=== PATIENT | male | born 1935 | race Caucasian/White ===

== ENCOUNTER 2017-12-06 11:26 | Inpatient (IN) | payer MEDICARE, OTHER ==
[~2017-12-06] VITALS: Ht 182.9 cm; Wt 60.5 kg
[2017-12-06] MEDS ORDERED: DONE5TAB5 PO (12:13)
[2017-12-06] MEDS ORDERED: MEMA5 PO (12:13)
[2017-12-06] MEDS ORDERED: AMLO2.5T PO (12:13)
[2017-12-06] MEDS ORDERED: SERT50TA12 PO (12:13)
[2017-12-06 12:18] LABS: GLUCOSE,POINT OF CARE 117 MG/DL (70-110)
[2017-12-06] MEDS ORDERED: SODIUM CHLORIDE 0.9% 1,000 ML IV ONE ×2 (12:30→14:00)
[2017-12-06] MEDS ORDERED: 0.9% SODIUM CHLORIDE 10 ML SYRINGE IVP PRN ×2 (12:30→15:15)
[2017-12-06] MEDS ORDERED: ACETAMINOPHEN 1000 MG/ISO-OSM 100 ML IV ONE (12:45)
[2017-12-06 12:57] LABS: BASOPHILS % (AUTO) 1.3 % (0.0-2.0); EOSINOPHILS % (AUTO) 0 % (1.0-6.0); HEMATOCRIT 41.4 % (41-53); HEMOGLOBIN 13.8 g/dL (13.5-17.5); LYMPHOCYTES # (AUTO) 0.5 K/uL (1.0-4.8); LYMPHOCYTES % (AUTO) 2.1 % (22.0-44.0); MEAN CORPUSCULAR HEMOGLOBIN 28.6 pg (26.0-34.0); MEAN CORPUSCULAR HGB CONC 33.4 G/dL (31.0-37.0); MEAN CORPUSCULAR VOLUME 86 fL (80-100); MONOCYTES # (AUTO) 1.2 K/uL (0.1-1.0); MONOCYTES % (AUTO) 5.1 % (2.0-9.0); NEUTROPHILS # (AUTO) 21.6 K/uL (1.8-7.7); PLATELET COUNT (AUTO) 560 K/uL (150-450); RED BLOOD CELL COUNT(AUTO) 4.83 MIL/uL (4.50-5.90); RED CELL DISTRIBUTION WIDTH 14.8 % (11.5-14.5)
[2017-12-06 12:58] LABS: NEUTROPHILS % (AUTO) 91.5 % (40.0-70.0)
[2017-12-06] MEDS ORDERED: IPRATROPIUM BROMIDE 0.5 MG/2.5 ML NEB SOLUTION NEB ONE (13:00)
[2017-12-06] MEDS ORDERED: ALBUTEROL SULFATE 2.5 MG/0.5 ML NEB SOLUTION NEB ONE (13:00)
[2017-12-06 13:11] LABS: INR 1.1 (0.9-1.1); PROTHROMBIN TIME 11.3 SEC (9.4-11.6)
[2017-12-06] MEDS ORDERED: VANCOMYCIN HCL 1 GM/D5% WATER 200 ML IV ONE (13:15)
[2017-12-06] MEDS ORDERED: LEVOFLOXACIN 750 MG/D5% WATER 150 ML IV ONE (13:15)
[2017-12-06 13:21] LABS: ANION GAP 11 mmol/L (8-16); CALCIUM, TOTAL 9.6 mg/dL (8.8-10.5); CARBON DIOXIDE 28 mmol/L (22-29); CHLORIDE 120 mmol/L (98-107); CREATININE 1.79 mg/dL (0.60-1.30); GLOMERULAR FILTR. RATE CALC 37 mL/min (>60); GLUCOSE,RANDOM 134 mg/dL (70-110); POTASSIUM 3.2 mmol/L (3.5-5.1); SODIUM SERUM 159 mmol/L (136-145); UREA NITROGEN, BLOOD 65 mg/dL (7-18)
[2017-12-06 13:25] LABS: INFLUENZA TYPE A NEGATIVE FOR TYPE A (NEGATIVE); INFLUENZA TYPE B NEGATIVE FOR TYPE B (NEGATIVE)
[2017-12-06 13:27] LABS: BILIRUBIN,URINE NEGATIVE (NEGATIVE); GLUCOSE, URINE (UA) NEGATIVE (NEGATIVE); KETONES,URINE NEGATIVE (NEGATIVE); LEUKOCYTE ESTERASE ,URINE NEGATIVE (NEGATIVE); NITRATE,URINE NEGATIVE (NEGATIVE); OCCULT BLOOD,URINE SMALL (NEGATIVE); PH,URINE 5.5 (5.0-8.0); PROTEIN,URINE POS 1+ (NEGATIVE)
[2017-12-06 13:28] LABS: APPEARANCE,URINE HAZY (CLEAR)
[2017-12-06 13:32] LABS: B-TYPE NATRIURETIC PEPTIDE 253 pg/mL (0-100)
[2017-12-06 13:35] LABS: BACTERIA,URINE Few /HPF (None Seen); RBC,URINE 0-2 /HPF (0-2); SQUAMOUS EPITHELIAL CELL,UR Few /LPF (None Seen)
[2017-12-06 13:44] LABS: ALANINE AMINOTRANSFERASE 50 U/L (12-78); ALBUMIN 2.3 g/dL (3.4-5.0); ALKALINE PHOSPHATASE 110 U/L (46-116); ASPARTATE AMINOTRANSFERASE 34 U/L (15-37); BILIRUBIN,TOTAL 0.8 mg/dL (0.1-1.0); CREATINE KINASE, TOTAL 108 U/L (39-308); TOTAL PROTEIN, SERUM 7.7 g/dL (6.4-8.2)
[2017-12-06] MEDS ORDERED: SODIUM CHLORIDE 0.9% 500 ML IV ONE (14:00)
[2017-12-06] MEDS ORDERED: *CLINICAL-LEVOFLOXACIN IVPB DOSING CLINICAL ONE (19:45)
[2017-12-06] MEDS ORDERED: ALBUTEROL SULFATE HFA 90 MCG/PUFF 8 GM INHALER IH PRN (19:45)
[2017-12-06] MEDS ORDERED: MAGNESIUM HYDROXIDE SUSPENSION 30 ML UDCUP PO PRN (19:45)
[2017-12-06] MEDS ORDERED: HYDROCODONE/ACETAMINOPHEN 5-325 MG TABLET PO PRN (19:45)
[2017-12-06] MEDS ORDERED: ZOLPIDEM TARTRATE 5 MG TABLET PO PRN (19:45)
[2017-12-06] MEDS ORDERED: MORPHINE SULFATE 2 MG/ML SYRINGE IVP PRN (19:45)
[2017-12-06] MEDS ORDERED: ONDANSETRON HCL 4 MG/2 ML VIAL IVP PRN (19:45)
[2017-12-06] MEDS ORDERED: DEXTROSE 5%-WATER 1,000 ML IV ONE (19:45)
[2017-12-06] MEDS ORDERED: BISACODYL 10 MG RECTAL RECTAL SUPPOSITORY PR PRN (19:45)
[2017-12-06] MEDS: IPRATROPIUM BROMIDE 0.5 MG/2.5 ML NEB SOLUTION NEB SCH (20:42)
[2017-12-06] MEDS: ALBUTEROL SULFATE 2.5 MG/0.5 ML NEB SOLUTION NEB SCH (20:42)
[2017-12-06 20:53] VITALS: BP 113/57
[2017-12-06] MEDS: DOCUSATE SODIUM 100 MG CAPSULE PO SCH (21:00)
[2017-12-06] MEDS: POTASSIUM CHL 10 MEQ/WATER 50 ML IV SCH ×2 (21:29→23:54)
[2017-12-06] MEDS ORDERED: INFLUENZA VIRUS VACCINE QVS 2017-18 (3YR+)/PF 60 MCG/0.5 ML SYRINGE IM ONE (22:45)
[2017-12-06 23:31] VITALS: BP 99/63
[2017-12-06] MEDS: HEPARIN SODIUM,PORCINE 5,000 UNITS/ML VIAL SQ SCH (23:54)
[2017-12-07] MEDS: IPRATROPIUM BROMIDE 0.5 MG/2.5 ML NEB SOLUTION NEB SCH ×2 (02:34→09:31)
[2017-12-07] MEDS: ALBUTEROL SULFATE 2.5 MG/0.5 ML NEB SOLUTION NEB SCH ×2 (02:34→09:31)
[2017-12-07 03:56] VITALS: BP 127/88
[2017-12-07 06:25] LABS: BASOPHILS % (AUTO) 0.1 % (0.0-2.0); EOSINOPHILS % (AUTO) 0 % (1.0-6.0); HEMATOCRIT 34.1 % (41-53); HEMOGLOBIN 11.7 g/dL (13.5-17.5); LYMPHOCYTES # (AUTO) 0.6 K/uL (1.0-4.8); LYMPHOCYTES % (AUTO) 3.4 % (22.0-44.0); MEAN CORPUSCULAR HEMOGLOBIN 29.3 pg (26.0-34.0); MEAN CORPUSCULAR HGB CONC 34.2 G/dL (31.0-37.0); MEAN CORPUSCULAR VOLUME 86 fL (80-100); MONOCYTES # (AUTO) 0.8 K/uL (0.1-1.0); MONOCYTES % (AUTO) 4.7 % (2.0-9.0); NEUTROPHILS # (AUTO) 15.8 K/uL (1.8-7.7); PLATELET COUNT (AUTO) 438 K/uL (150-450); RED BLOOD CELL COUNT(AUTO) 3.98 MIL/uL (4.50-5.90); RED CELL DISTRIBUTION WIDTH 14.8 % (11.5-14.5)
[2017-12-07 06:53] LABS: NEUTROPHILS % (AUTO) 91.8 % (40.0-70.0)
[2017-12-07 07:09] VITALS: BP 132/73
[2017-12-07 07:23] LABS: ALBUMIN 1.7 g/dL (3.4-5.0); BILIRUBIN,TOTAL 0.5 mg/dL (0.1-1.0); CALCIUM, TOTAL 8.5 mg/dL (8.8-10.5); CREATININE 1.37 mg/dL (0.60-1.30); TOTAL PROTEIN, SERUM 5.9 g/dL (6.4-8.2)
[2017-12-07 07:27] LABS: POTASSIUM 2.8 mmol/L (3.5-5.1)
[2017-12-07] MEDS: POTASSIUM CHL 10 MEQ/WATER 50 ML IV SCH ×4 (07:58→11:43)
[2017-12-07] MEDS ORDERED: SODIUM CHLORIDE 0.9% 100 ML ONE (08:10)
[2017-12-07] MEDS: PANTOPRAZOLE SODIUM 40 MG DR TABLET PO SCH (09:00)
[2017-12-07] MEDS: APIXABAN 2.5 MG TABLET PO SCH ×2 (09:00→20:30)
[2017-12-07] MEDS: MEMANTINE HCL 5 MG TABLET PO SCH (09:00)
[2017-12-07] MEDS: METOPROLOL TARTRATE 25 MG TABLET PO SCH ×2 (09:00→20:30)
[2017-12-07] MEDS: DONEPEZIL HCL 5 MG TABLET PO SCH (09:00)
[2017-12-07] MEDS: DOCUSATE SODIUM 100 MG CAPSULE PO SCH ×2 (09:00→20:30)
[2017-12-07] MEDS: HEPARIN SODIUM,PORCINE 5,000 UNITS/ML VIAL SQ SCH (09:14)
[2017-12-07 11:07] VITALS: BP 111/75
[2017-12-07 15:38] VITALS: BP 132/89
[2017-12-07 19:07] VITALS: BP 151/71
[2017-12-07 22:07] LABS: CALCIUM, TOTAL 8.5 mg/dL (8.8-10.5); CREATININE 1.21 mg/dL (0.60-1.30); POTASSIUM 3.5 mmol/L (3.5-5.1)
[2017-12-07 22:11] LABS: MAGNESIUM 2.3 mg/dL (1.80-2.40); PHOSPHORUS 3.2 mg/dL (2.5-4.9)
[2017-12-07] MEDS: DEXTROSE 5%-WATER 1,000 ML IV SCH (22:34)
[2017-12-07 23:33] VITALS: BP 140/83
[2017-12-08 02:02] LABS: CREATININE,URINE RANDOM 91.2 mg/dL (30.0-125.0)
[2017-12-08 02:05] LABS: APPEARANCE,URINE CLOUDY (CLEAR); BILIRUBIN,URINE NEGATIVE (NEGATIVE); GLUCOSE, URINE (UA) NEGATIVE (NEGATIVE); KETONES,URINE NEGATIVE (NEGATIVE); LEUKOCYTE ESTERASE ,URINE NEGATIVE (NEGATIVE); NITRATE,URINE NEGATIVE (NEGATIVE); OCCULT BLOOD,URINE SMALL (NEGATIVE); PROTEIN,URINE TRACE (NEGATIVE)
[2017-12-08 02:28] LABS: BACTERIA,URINE None Seen /HPF (None Seen); RBC,URINE 0-2 /HPF (0-2); SQUAMOUS EPITHELIAL CELL,UR Few /LPF (None Seen); URIC ACID CRYSTALS,URINE Moderate /LPF (None Seen); WBC,URINE None Seen /HPF (0-5)
[2017-12-08 04:25] VITALS: BP 132/67
[2017-12-08 06:49] LABS: BASOPHILS % (AUTO) 0.1 % (0.0-2.0); EOSINOPHILS % (AUTO) 0.1 % (1.0-6.0); HEMATOCRIT 34.3 % (41-53); HEMOGLOBIN 11.7 g/dL (13.5-17.5); LYMPHOCYTES # (AUTO) 0.8 K/uL (1.0-4.8); LYMPHOCYTES % (AUTO) 5.1 % (22.0-44.0); MEAN CORPUSCULAR VOLUME 85 fL (80-100); MONOCYTES # (AUTO) 0.8 K/uL (0.1-1.0); MONOCYTES % (AUTO) 5.2 % (2.0-9.0); NEUTROPHILS # (AUTO) 13.6 K/uL (1.8-7.7); PLATELET COUNT (AUTO) 444 K/uL (150-450); RED BLOOD CELL COUNT(AUTO) 4.02 MIL/uL (4.50-5.90); RED CELL DISTRIBUTION WIDTH 14.8 % (11.5-14.5)
[2017-12-08 07:02] LABS: NEUTROPHILS % (AUTO) 89.5 % (40.0-70.0)
[2017-12-08 07:31] VITALS: BP 144/73
[2017-12-08] MEDS ORDERED: POTASSIUM CHLORIDE 10% 40 MEQ/30 ML LIQUID UDCUP PO ONE (08:00)
[2017-12-08 08:15] LABS: ALBUMIN 1.5 g/dL (3.4-5.0); BILIRUBIN,TOTAL 0.5 mg/dL (0.1-1.0); CALCIUM, TOTAL 8.6 mg/dL (8.8-10.5); CREATININE 1.26 mg/dL (0.60-1.30); MAGNESIUM 2.3 mg/dL (1.80-2.40); PHOSPHORUS 3.1 mg/dL (2.5-4.9); POTASSIUM 3.1 mmol/L (3.5-5.1); TOTAL PROTEIN, SERUM 5.7 g/dL (6.4-8.2)
[2017-12-08] MEDS: METOPROLOL TARTRATE 25 MG TABLET PO SCH ×2 (08:30→20:54)
[2017-12-08] MEDS: APIXABAN 2.5 MG TABLET PO SCH ×2 (08:32→20:54)
[2017-12-08] MEDS: DOCUSATE SODIUM 100 MG CAPSULE PO SCH ×2 (08:32→20:54)
[2017-12-08] MEDS: DEXTROSE 5%-WATER 1,000 ML IV SCH ×2 (08:32→18:19)
[2017-12-08] MEDS: DONEPEZIL HCL 5 MG TABLET PO SCH (08:32)
[2017-12-08] MEDS: MEMANTINE HCL 5 MG TABLET PO SCH (08:33)
[2017-12-08] MEDS: PANTOPRAZOLE SODIUM 40 MG DR TABLET PO SCH (08:33)
[2017-12-08] MEDS: AMIODARONE HCL 200 MG TABLET PO SCH ×3 (08:35→20:54)
[2017-12-08 11:32] VITALS: BP 122/68
[2017-12-08] MEDS ORDERED: POTASSIUM CHLORIDE 10 MEQ ER TABLET PO ONE (12:00)
[2017-12-08] MEDS: LEVOFLOXACIN 750 MG/D5% WATER 150 ML IV SCH (14:22)
[2017-12-08 15:39] VITALS: BP 117/56
[2017-12-08 17:37] LABS: CALCIUM, TOTAL 8.2 mg/dL (8.8-10.5); CREATININE 1.32 mg/dL (0.60-1.30); MAGNESIUM 2.3 mg/dL (1.80-2.40); POTASSIUM 3.8 mmol/L (3.5-5.1)
[2017-12-08 19:25] VITALS: BP 115/55
[2017-12-09] VITALS (7 sets, daily range): BP systolic 113–140; BP diastolic 52–68
[2017-12-09 06:49] LABS: BASOPHILS % (AUTO) 0.1 % (0.0-2.0); EOSINOPHILS % (AUTO) 0.5 % (1.0-6.0); HEMATOCRIT 33.7 % (41-53); HEMOGLOBIN 11.3 g/dL (13.5-17.5); LYMPHOCYTES % (AUTO) 6.5 % (22.0-44.0); MEAN CORPUSCULAR HEMOGLOBIN 28.9 pg (26.0-34.0); MEAN CORPUSCULAR HGB CONC 33.7 G/dL (31.0-37.0); MEAN CORPUSCULAR VOLUME 86 fL (80-100); MONOCYTES # (AUTO) 0.8 K/uL (0.1-1.0); MONOCYTES % (AUTO) 5.6 % (2.0-9.0); NEUTROPHILS # (AUTO) 13.1 K/uL (1.8-7.7); PLATELET COUNT (AUTO) 431 K/uL (150-450); RED BLOOD CELL COUNT(AUTO) 3.92 MIL/uL (4.50-5.90); RED CELL DISTRIBUTION WIDTH 14.7 % (11.5-14.5)
[2017-12-09 06:59] LABS: NEUTROPHILS % (AUTO) 87.3 % (40.0-70.0)
[2017-12-09 07:04] LABS: ALBUMIN 1.4 g/dL (3.4-5.0); BILIRUBIN,TOTAL 0.4 mg/dL (0.1-1.0); CALCIUM, TOTAL 8.5 mg/dL (8.8-10.5); CREATININE 1.35 mg/dL (0.60-1.30); MAGNESIUM 2.2 mg/dL (1.80-2.40); PHOSPHORUS 3.3 mg/dL (2.5-4.9); POTASSIUM 3.5 mmol/L (3.5-5.1); TOTAL PROTEIN, SERUM 5.6 g/dL (6.4-8.2)
[2017-12-09] MEDS: DEXTROSE 5%-WATER 1,000 ML IV SCH ×2 (07:25→14:25)
[2017-12-09] MEDS: PANTOPRAZOLE SODIUM 40 MG DR TABLET PO SCH (07:25)
[2017-12-09] MEDS: METOPROLOL TARTRATE 25 MG TABLET PO SCH ×2 (07:26→20:13)
[2017-12-09] MEDS: APIXABAN 2.5 MG TABLET PO SCH ×2 (07:26→20:13)
[2017-12-09] MEDS: MEMANTINE HCL 5 MG TABLET PO SCH (07:26)
[2017-12-09] MEDS: AMIODARONE HCL 200 MG TABLET PO SCH ×3 (07:26→20:13)
[2017-12-09] MEDS: DONEPEZIL HCL 5 MG TABLET PO SCH (07:26)
[2017-12-09] MEDS: DOCUSATE SODIUM 100 MG CAPSULE PO SCH ×2 (07:26→20:12)
[2017-12-09] MEDS: LEVOFLOXACIN 750 MG/D5% WATER 150 ML IV SCH (14:21)
[2017-12-09 18:04] LABS: CALCIUM, TOTAL 8.3 mg/dL (8.8-10.5); CREATININE 1.34 mg/dL (0.60-1.30); POTASSIUM 3.7 mmol/L (3.5-5.1)
[2017-12-09] MEDS: ACETAMINOPHEN 325 MG TABLET PO PRN (20:41)
[2017-12-10] VITALS (8 sets, daily range): BP systolic 111–148; BP diastolic 50–75
[2017-12-10] MEDS: DEXTROSE 5%-WATER 1,000 ML IV SCH ×3 (00:58→20:12)
[2017-12-10 06:24] LABS: CALCIUM, TOTAL 8.4 mg/dL (8.8-10.5); CREATININE 1.23 mg/dL (0.60-1.30); MAGNESIUM 2.3 mg/dL (1.80-2.40); PHOSPHORUS 3.6 mg/dL (2.5-4.9); POTASSIUM 3.7 mmol/L (3.5-5.1)
[2017-12-10] MEDS: AMIODARONE HCL 200 MG TABLET PO SCH ×3 (10:00→20:11)
[2017-12-10] MEDS: DONEPEZIL HCL 5 MG TABLET PO SCH (10:00)
[2017-12-10] MEDS: MEMANTINE HCL 5 MG TABLET PO SCH (10:00)
[2017-12-10] MEDS: MULTIVITAMINS WITH MINERALS, THERAPEUTIC TABLET PO SCH (10:00)
[2017-12-10] MEDS: METOPROLOL TARTRATE 25 MG TABLET PO SCH ×2 (10:00→20:10)
[2017-12-10] MEDS: APIXABAN 2.5 MG TABLET PO SCH ×2 (10:01→20:11)
[2017-12-10] MEDS: DOCUSATE SODIUM 100 MG CAPSULE PO SCH ×2 (10:01→20:11)
[2017-12-10] MEDS: PANTOPRAZOLE SODIUM 40 MG DR TABLET PO SCH (10:02)
[2017-12-10] MEDS: ACETAMINOPHEN 325 MG TABLET PO PRN (20:11)
[2017-12-11] MEDS: DEXTROSE 5%-WATER 1,000 ML IV SCH (06:14)
[2017-12-11 07:10] LABS: ANION GAP 8 mmol/L (8-16); CALCIUM, TOTAL 7.8 mg/dL (8.8-10.5); CARBON DIOXIDE 26 mmol/L (22-29); CHLORIDE 108 mmol/L (98-107); CREATININE 1.13 mg/dL (0.60-1.30); GLOMERULAR FILTR. RATE CALC > 60 mL/min (>60); GLUCOSE,RANDOM 104 mg/dL (70-110); POTASSIUM 3.3 mmol/L (3.5-5.1); SODIUM SERUM 142 mmol/L (136-145); UREA NITROGEN, BLOOD 26 mg/dL (7-18)
[2017-12-11 07:48] VITALS: BP 130/62
[2017-12-11] MEDS ORDERED: LEVOFLOXACIN 750 MG/D5% WATER 150 ML IV SCH (09:00)
[2017-12-11] MEDS: MULTIVITAMINS WITH MINERALS, THERAPEUTIC TABLET PO SCH (09:07)
[2017-12-11] MEDS: DOCUSATE SODIUM 100 MG CAPSULE PO SCH (09:07)
[2017-12-11] MEDS: METOPROLOL TARTRATE 25 MG TABLET PO SCH (09:07)
[2017-12-11] MEDS: MEMANTINE HCL 5 MG TABLET PO SCH (09:07)
[2017-12-11] MEDS: DONEPEZIL HCL 5 MG TABLET PO SCH (09:07)
[2017-12-11] MEDS: APIXABAN 2.5 MG TABLET PO SCH (09:07)
[2017-12-11] MEDS: PANTOPRAZOLE SODIUM 40 MG DR TABLET PO SCH (09:07)
[2017-12-11] MEDS: AMIODARONE HCL 200 MG TABLET PO SCH ×2 (09:07→16:00)
[2017-12-11] MEDS ORDERED: SODIUM CHLORIDE 0.9% 50 ML ONE (09:14)
[2017-12-11] MEDS ORDERED: POTASSIUM CHLORIDE 10% 40 MEQ/30 ML LIQUID UDCUP PO ONE (09:45)
[2017-12-11 11:56] VITALS: BP 115/56
[2017-12-11] MEDS ORDERED: AMIO200T44 PO (15:33)
[2017-12-11] MEDS ORDERED: APIX2.5T PO (15:33)
[2017-12-11] MEDS ORDERED: LEVO750P3 IV (15:34)
[2017-12-11] MEDS ORDERED: MULT-1239 PO (15:35)
[2017-12-11] MEDS ORDERED: METO25 PO (15:35)
[2017-12-11] MEDS ORDERED: PANT40TA25 PO (15:37)
[2017-12-11] MEDS ORDERED: ACET-784 PO (15:38)
[2017-12-11 15:55] VITALS: BP 113/43
== END 2017-12-11 16:40 | DRG 871 ==
LOC: EMS 11:27 → 5N 18:44
PROVIDERS: ADMIT Internal Medicine; ATTEND Internal Medicine
DX: A41.9 Sepsis, unspecified organism (principal); E43 Unspecified severe protein-calorie malnutrition; N17.0 Acute kidney failure with tubular necrosis; J18.9 Pneumonia, unspecified organism; E87.0 Hyperosmolality and hypernatremia; G93.41 Metabolic encephalopathy; F03.90 Unspecified dementia, unspecified severity, without behavioral disturbance, psychotic disturbance, mood disturbance, and anxiety; I48.0 Paroxysmal atrial fibrillation; E86.0 Dehydration; I48.92 Unspecified atrial flutter; N18.3 Chronic kidney disease, stage 3 (moderate); E87.6 Hypokalemia; I12.9 Hypertensive chronic kidney disease with stage 1 through stage 4 chronic kidney disease, or unspecified chronic kidney disease
CPT/HCPCS: 51702; 70450; 76770; 82570; 82962; 83605; 83735; 84100; 84132; 84295; 84300; 84540; 87040; 87804; 90471; 92526; 92610; 93005; 93306; 93880; 94640; 97162; J0131; J1644; J1956; J3370; J3480; J7030; J7040; J7050; J7060